=== PATIENT | male | born 1990 | race Two or more races ===

== ENCOUNTER 2018-03-21 01:16 | Emergency (ER) | payer OTHER ==
[2018-03-21] MEDS ORDERED: ONDANSETRON HCL INJ/PF 4 MG/2 ML SDV IV ONE (02:24)
[2018-03-21] MEDS ORDERED: PANTOPRAZOLE SODIUM 40 MG VIAL IV ONE (02:24)
[2018-03-21] MEDS ORDERED: NORMAL SALINE 1000 ML 1,000 ML IV ONE (02:24)
[2018-03-21 02:42] LABS: ABSOLUTE EOSINOPHILS # (AUTO) 0.2 10^3/uL (0.0-0.6); ABSOLUTE LYMPHOCYTES (AUTO) 2.5 10^3/uL (0.5-4.7); ABSOLUTE MONOCYTES (AUTO) 0.9 10^3/uL (0.1-1.4); ABSOLUTE NEUT (AUTO) 3.9 10^3/uL (1.7-8.2); BASOPHILS % (AUTO) 0.4 % (0-2); EOSINOPHILS % (AUTO) 2.9 % (0-6); HEMATOCRIT 41.7 % (37.9-51.0); HEMOGLOBIN 14.8 g/dL (13.5-17.0); LYMPHOCYTES % (AUTO) 33.1 % (13-45); MEAN CORPUSCULAR HEMOGLOBIN 31.8 pg (27.0-33.4); MEAN CORPUSCULAR HGB CONC 35.4 g/dL (32.0-36.0); MEAN CORPUSCULAR VOLUME 90 fl (80-97); MONOCYTES % (AUTO) 11.7 % (3-13); PLATELET COUNT 240 10^3/uL (150-450); RED BLOOD COUNT 4.64 10^6/uL (4.35-5.55); SEGMENTED NEUTROPHILS % (AUTO) 51.9 % (42-78); TOTAL CELLS COUNTED % (AUTO) 100 %; WHITE BLOOD COUNT 7.5 10^3/uL (4.0-10.5)
[2018-03-21] MEDS ORDERED: LIDOCAINE 2% VISCOUS SOLN 20 ML UDCUP PO ONE (03:08)
[2018-03-21] MEDS ORDERED: MAG HYDROX/AL HYDROX/SIMETH SUSP 30 ML UDCUP PO ONE (03:08)
[2018-03-21] MEDS ORDERED: METOCLOPRAMIDE HCL ORAL SOLN 10 MG/10 ML UDCUP PO ONE (03:08)
--- NOTE | 2018-03-21 03:11 | ER Document Report ---
ED General - General Chief Complaint: Epigastric Pain Stated Complaint: ABDOMINAL PAIN Time Seen by Provider: 03/21/18 02:23 TRAVEL OUTSIDE OF THE [place] IN LAST 30 DAYS: No - HPI Notes: Patient is a 27-year-old male that presents to the emergency department for chief complaint of abdominal pain. Patient reports 3 days of epigastric abdominal pain. It is sharp and worse when he lays down. It had pain has been constant since onset 3 days ago. He states it was a little better yesterday but got worse today. He states he did drink alcohol today reporting 2 beers consumed. Patient states all of this happened on after taking a "Phenalean" [id number] weight loss medication. He denies any vomiting but reports some nausea. He states he has had intermittent diarrhea for the last few days as well. He denies fevers, chills, chest pain and shortness of breath. Past Medical History: Negative Past Surgical History: [place] teeth removal Social History: Occasional alcohol, daily dip tobacco, occasional smoking Family History: Reviewed and noncontributory for presenting illness Allergies: Reviewed, see documented allergy list. REVIEW OF SYSTEMS: CONSTITUTIONAL : No fever No chills No diaphoresis No recent illness EENT: No vision changes No congestion No sore throat CARDIOVASCULAR: No chest pain No palpitations RESPIRATORY: No shortness of breath No cough No difficulty breathing GASTROINTESTINAL: abdominal pain nausea No vomiting diarrhea GENITOURINARY: No dysuria No hematuria No difficulty urinating MUSCULOSKELETAL: No back pain No leg pain No arm pain SKIN: No rashes No lesions LYMPHATIC: No swollen, enlarged glands. NEUROLOGICAL: No lightheadedness No headache No weakness No paresthesias PSYCHIATRIC: No anxiety No depression PHYSICAL EXAMINATION: Vital signs reviewed, nursing noted reviewed. GENERAL: Well-appearing, well-nourished and in no acute distress. HEAD: Atraumatic, normocephalic. EYES: Eyes appear normal, extraocular movements intact, sclera anicteric, conjunctiva are normal. ENT: nares patent, oropharynx clear without exudates. Moist mucous membranes. NECK: Normal range of motion, supple without lymphadenopathy LUNGS: Breath sounds clear to auscultation bilaterally and equal. No wheezes rales or rhonchi. HEART: Regular rate and rhythm without murmurs ABDOMEN: Soft, epigastric tenderness, normoactive bowel sounds. No rebound, guarding, or rigidity. No masses appreciated. EXTREMITIES: Nontender, good range of motion, no pitting or edema. NEUROLOGICAL: No focal neurological deficits. Moves all extremities spontaneously Motor and sensory grossly intact on exam. PSYCH: Normal mood, normal affect. SKIN: Warm, Dry, normal turgor, no rashes or lesions noted on exposed skin - Related Data Allergies/Adverse Reactions: No Known Allergies Allergy (Verified 03/21/18 03:22) Past Medical History - Social History Smoking Status: Current Some Day Smoker Chew tobacco use (# tins/day): Yes - <1 Frequency of alcohol use: Social Drug Abuse: None Family History: Reviewed & Not Pertinent Patient has suicidal ideation: No Patient has homicidal ideation: No Renal/ Medical History: Denies: Hx Peritoneal Dialysis Past Surgical History: Reports: Hx Oral Surgery Physical Exam - Vital signs Vitals: Temp Pulse Resp BP Pulse Ox 97.9 F 71 16 131/83 H 97 03/21/18 01:17 03/21/18 01:17 03/21/18 01:17 03/21/18 01:17 03/21/18 01:17 Course - Re-evaluation Re-evalutation: 03/21/18 03:10 Vitals reviewed. Nursing notes reviewed. Patient given IV hydration, Protonix, Zofran and GI cocktail for symptomatic management. 03/21/18 04:07 patient's lab work is unremarkable. He has a normal lipase. Patient did get symptomatic improvement while in the emergency room. He was counseled on stopping alcohol consumption as well as dietary changes. He will be started on omeprazole for symptomatic management. He is stable at discharge. Laboratory 03/21/18 03/21/18 02:27 02:27 WBC 7.5 RBC 4.64 Hgb 14.8 Hct 41.7 MCV 90 MCH 31.8 MCHC 35.4 RDW 13.0 Plt Count 240 Seg Neutrophils % 51.9 Lymphocytes % 33.1 Monocytes % 11.7 Eosinophils % 2.9 Basophils % 0.4 Absolute Neutrophils 3.9 Absolute Lymphocytes 2.5 Absolute Monocytes 0.9 Absolute Eosinophils 0.2 Absolute Basophils 0.0 Sodium 141.2 Potassium 3.8 Chloride 102 Carbon Dioxide 30 Anion Gap 9 BUN 16 Creatinine 0.85 Est GFR ( Amer) > 60 Est GFR (Non-Af Amer) > 60 Glucose 93 Calcium 9.0 Total Bilirubin 0.4 Direct Bilirubin 0.2 Neonat Total Bilirubin Not Reportable Neonat Direct Bilirubin Not Reportable Neonat Indirect Bili Not Reportable AST 105 H ALT 50 Alkaline Phosphatase 134 H Total Protein 6.7 Albumin 4.1 Lipase 151.2 - Vital Signs Vital signs: Temp Pulse Resp BP Pulse Ox 97.9 F 71 16 131/83 H 97 03/21/18 01:17 03/21/18 01:17 03/21/18 01:17 03/21/18 01:17 03/21/18 01:17 - Laboratory Result Diagrams: 03/21/18 02:27 03/21/18 02:27 Laboratory results interpreted by me: 03/21/18 02:27 AST 105 H Alkaline Phosphatase 134 H Discharge - Discharge Clinical Impression: Abdominal pain Qualifiers: Abdominal location: epigastric Qualified Code(s): R10.13 - Epigastric pain Condition: Stable Instructions: Abdominal Pain ([facility]) Additional Instructions: Please return to the emergency department if you have any worsening, or concern of your symptoms. Please return to the emergency department if you develop chest pain, difficulty breathing, severe abdominal pain, or ongoing vomiting. Please follow-up with your primary care physician in 2-3 days and any other recommended physicians. If prescribed, take all medications as directed. If you have any questions or concerns do not hesitate to return the emergency department for evaluation. Avoid alcohol, tobacco, spicy food, fried food and citrus food Prescriptions: Omeprazole 40 mg PO DAILY #30 capsule. Referrals: [facility] [Provider Group] - Follow up in 3-5 days
[2018-03-21 03:48] LABS: ALANINE AMINOTRANSFERASE 50 U/L (21-72); ALBUMIN 4.1 g/dL (3.5-5.0); ALKALINE PHOSPHATASE 134 U/L (38-126); ANION GAP 9 (5-19); ASPARTATE AMINO TRANSFERASE 105 U/L (17-59); BILIRUBIN,DIRECT 0.2 mg/dL (0.0-0.4); BILIRUBIN,TOTAL 0.4 mg/dL (0.2-1.3); BLOOD UREA NITROGEN 16 mg/dL (7-20); CARBON DIOXIDE 30 mmol/L (22-30); CHLORIDE 102 mmol/L (98-107); GLUCOSE 93 mg/dL (75-110); LIPASE 151.2 U/L (23-300); POTASSIUM 3.8 mmol/L (3.6-5.0); SODIUM 141.2 mmol/L (137-145); TOTAL PROTEIN 6.7 g/dL (6.3-8.2)
[2018-03-21 04:22] VITALS: BP 108/50
== END 2018-03-21 04:30 | disposition home or self-care (01) ==
LOC: ER 01:16
DX: R10.13 Epigastric pain (principal); R10.816 Epigastric abdominal tenderness; R11.0 Nausea; R19.7 Diarrhea, unspecified; F17.200 Nicotine dependence, unspecified, uncomplicated
CPT/HCPCS: 99284; 96374; 96375; 36415; 83690; 85025; 80053; J3490; S0164; J2405; J7030

== ENCOUNTER 2018-03-21 15:39 | Emergency (ER) | payer OTHER ==
[2018-03-21] MEDS ORDERED: NORMAL SALINE 1000 ML 1,000 ML IV ONE (17:11)
[2018-03-21] MEDS ORDERED: FAMOTIDINE INJ/PF 20 MG/2 ML SDV IV ONE (17:11)
[2018-03-21] MEDS ORDERED: LIDOCAINE 2% VISCOUS SOLN 20 ML UDCUP PO ONE (17:12)
[2018-03-21] MEDS ORDERED: MAG HYDROX/AL HYDROX/SIMETH SUSP 30 ML UDCUP PO ONE (17:12)
--- NOTE | 2018-03-21 17:13 | ER Document Report ---
ED GI/ - General Chief Complaint: Abdominal Pain Stated Complaint: ABDOMINAL PAIN Time Seen by Provider: 03/21/18 17:00 Mode of Arrival: Ambulatory Information source: Patient Notes: Patient presents complaining of epigastric pain for the past 3 days. Patient states he was seen here for this problem early this morning and was discharged. Patient was given a prescription for omeprazole but has not gotten it filled or taken it. Patient states that whenever he got home today he started to eat pizza and his abdominal pain returned. Patient denies any fever, nausea vomiting or diarrhea. Patient states last alcohol use was yesterday. TRAVEL OUTSIDE OF THE [place] IN LAST 30 DAYS: No - HPI Patient complains to provider of: Abdominal pain. No: Vomiting Onset: Other - 3 days Timing/Duration: Persistent Quality of pain: Burning Pain Level: 5 Location: Epigastric Sexual history: Active Associated symptoms: denies: Diarrhea, Dysuria, Fever, Vomiting Exacerbated by: Food Relieved by: Denies Similar symptoms previously: No Recently seen / treated by doctor: Yes - Related Data Allergies/Adverse Reactions: No Known Allergies Allergy (Verified 03/21/18 03:22) Past Medical History - General Information source: Patient - Social History Smoking Status: Current Every Day Smoker Smoking Education Provided: Yes Frequency of alcohol use: Occasional Drug Abuse: None Occupation: Active duty Lives with: Family Family History: Reviewed & Not Pertinent - Medical History Medical History: Negative Renal/ Medical History: Denies: Hx Peritoneal Dialysis Past Surgical History: Reports: Hx Oral Surgery Review of Systems - Review of Systems Constitutional: No symptoms reported. denies: Fever EENT: No symptoms reported Cardiovascular: No symptoms reported. denies: Chest pain Respiratory: No symptoms reported. denies: Cough, Short of breath Gastrointestinal: Abdominal pain. denies: Nausea, Vomiting Genitourinary: No symptoms reported. denies: Dysuria Male Genitourinary: No symptoms reported Musculoskeletal: No symptoms reported Skin: No symptoms reported Hematologic/Lymphatic: No symptoms reported Neurological/Psychological: No symptoms reported Physical Exam - Vital signs Vitals: Temp Pulse Resp BP Pulse Ox 98.5 F 51 L 18 125/71 96 03/21/18 15:44 03/21/18 15:44 03/21/18 15:44 03/21/18 15:44 03/21/18 15:44 - General General appearance: Alert, Anxious In distress: None - HEENT Head: Normocephalic, Atraumatic Eyes: Normal Conjunctiva: Normal Nasal: Normal Mouth/Lips: Normal Mucous membranes: Normal Neck: Normal, Supple. No: Lymphadenopathy - Respiratory Respiratory status: No respiratory distress Chest status: Nontender Breath sounds: Normal. No: Rales, Rhonchi, Stridor, Wheezing Chest palpation: Normal - Cardiovascular Rhythm: Regular Heart sounds: S1 appreciated, S2 appreciated Murmur: No - Abdominal Inspection: Normal Distension: No distension Bowel sounds: Normal Tenderness: Tender - epigastric Organomegaly: No organomegaly - Back Back: Normal, Nontender. No: CVA tenderness - Extremities General upper extremity: Normal inspection, Normal strength General lower extremity: Normal inspection, Normal strength - Neurological Neuro grossly intact: Yes Cognition: Normal Gabriela Coma Scale Eye Opening: Spontaneous Gabriela Coma Scale Verbal: Oriented [place] Coma Scale Motor: Obeys Commands [place] Coma Scale Total: 15 - Psychological Associated symptoms: Normal affect, Normal mood - Skin Skin Temperature: Warm Skin Moisture: Dry Skin Color: Normal Course - Re-evaluation Re-evalutation: 03/21/[address] Tan regarding patient presentation and diagnostic evaluation. Patient presents with epigastric tenderness. No concern for cholecystitis, cholangitis or pancreatitis at this time. Patient presents with likely gastritis symptoms. Patient encouraged to avoid alcohol and spicy foods. Patient encouraged to get the omeprazole filled and take as prescribed in addition to the Carafate. Patient encouraged to follow-up with his primary doctor for repeat examination. Patient reports feeling better after GI cocktail. Patient stable for discharge at this time. - Vital Signs Vital signs: Temp Pulse Resp BP Pulse Ox 98.4 F 53 L 16 133/65 H 100 03/21/18 19:16 03/21/18 19:16 03/21/18 19:16 03/21/18 19:16 03/21/18 19:16 - Laboratory Result Diagrams: 03/21/18 17:15 03/21/18 17:15 Laboratory results interpreted by me: 03/21/18 17:15 AST 87 H Alkaline Phosphatase 130 H Labs- Entire Visit 03/21/18 03/21/18 03/21/18 17:15 17:15 17:30 WBC 6.9 RBC 4.66 Hgb 14.3 Hct 42.0 MCV 90 MCH 30.7 MCHC 34.1 RDW 12.9 Plt Count 239 Seg Neutrophils % 58.4 Lymphocytes % 27.1 Monocytes % 11.6 Eosinophils % 2.6 Basophils % 0.3 Absolute Neutrophils 4.1 Absolute Lymphocytes 1.9 Absolute Monocytes 0.8 Absolute Eosinophils 0.2 Absolute Basophils 0.0 Sodium 138.9 Potassium 4.3 Chloride 101 Carbon Dioxide 29 Anion Gap 9 BUN 13 Creatinine 0.83 Est GFR ( Amer) > 60 Est GFR (Non-Af Amer) > 60 Glucose 99 Calcium 9.3 Total Bilirubin 0.3 Direct Bilirubin 0.2 Neonat Total Bilirubin Not Reportable Neonat Direct Bilirubin Not Reportable Neonat Indirect Bili Not Reportable AST 87 H ALT 54 Alkaline Phosphatase 130 H Total Protein 6.9 Albumin 4.3 Lipase 120.8 Urine Color YELLOW Urine Appearance CLOUDY Urine pH 7.0 Ur Specific [place] 1.014 Urine Protein NEGATIVE Urine Glucose (UA) NEGATIVE Urine Ketones NEGATIVE Urine Blood NEGATIVE Urine Nitrite NEGATIVE Urine Bilirubin NEGATIVE Urine Urobilinogen NEGATIVE Ur Leukocyte Esterase NEGATIVE Urine WBC (Auto) 1 Urine RBC (Auto) 0 Urine Bacteria (Auto) TRACE Amorphous Sediment Auto TRACE Urine Mucus (Auto) RARE Urine Ascorbic Acid NEGATIVE Urine Opiates Screen Urine Methadone Screen Ur Barbiturates Screen Ur Phencyclidine Scrn Ur Amphetamines Screen U Benzodiazepines Scrn Urine Cocaine Screen U Marijuana (THC) Screen Serum Alcohol < 10 03/21/18 17:30 WBC RBC Hgb Hct MCV MCH MCHC RDW Plt Count Seg Neutrophils % Lymphocytes % Monocytes % Eosinophils % Basophils % Absolute Neutrophils Absolute Lymphocytes Absolute Monocytes Absolute Eosinophils Absolute Basophils Sodium Potassium Chloride Carbon Dioxide Anion Gap BUN Creatinine Est GFR ( Amer) Est GFR (Non-Af Amer) Glucose Calcium Total Bilirubin Direct Bilirubin Neonat Total Bilirubin Neonat Direct Bilirubin Neonat Indirect Bili AST ALT Alkaline Phosphatase Total Protein Albumin Lipase Urine Color Urine Appearance Urine pH Ur Specific [place] Urine Protein Urine Glucose (UA) Urine Ketones Urine Blood Urine Nitrite Urine Bilirubin Urine Urobilinogen Ur Leukocyte Esterase Urine WBC (Auto) Urine RBC (Auto) Urine Bacteria (Auto) Amorphous Sediment Auto Urine Mucus (Auto) Urine Ascorbic Acid Urine Opiates Screen NEGATIVE Urine Methadone Screen NEGATIVE Ur Barbiturates Screen NEGATIVE Ur Phencyclidine Scrn NEGATIVE Ur Amphetamines Screen NEGATIVE U Benzodiazepines Scrn NEGATIVE Urine Cocaine Screen NEGATIVE U Marijuana (THC) Screen NEGATIVE Serum Alcohol Reviewed patient's labs from previous ER visit - Diagnostic Test Radiology reviewed: Reports reviewed Discharge - Discharge Clinical Impression: Abdominal pain Qualifiers: Abdominal location: epigastric Qualified Code(s): R10.13 - Epigastric pain Condition: Stable Disposition: HOME, SELF-CARE Instructions: Abdominal Pain ([facility]), Gastritis ([facility]) Additional Instructions: Return immediately for any new or worsening symptoms Followup with your primary care provider, call tomorrow to make a followup appointment Get the omeprazole prescription filled and take as prescribed Avoid any alcohol or spicy foods Eat a bland diet Prescriptions: Sucralfate [Carafate 1 gm Tablet] 1 gm PO ACHS #40 tablet Forms: Smoking Cessation Education Referrals: [facility] [Provider Group] - Follow up as needed
[2018-03-21 17:36] LABS: ABSOLUTE EOSINOPHILS # (AUTO) 0.2 10^3/uL (0.0-0.6); ABSOLUTE LYMPHOCYTES (AUTO) 1.9 10^3/uL (0.5-4.7); ABSOLUTE MONOCYTES (AUTO) 0.8 10^3/uL (0.1-1.4); ABSOLUTE NEUT (AUTO) 4.1 10^3/uL (1.7-8.2); BASOPHILS % (AUTO) 0.3 % (0-2); EOSINOPHILS % (AUTO) 2.6 % (0-6); HEMOGLOBIN 14.3 g/dL (13.5-17.0); LYMPHOCYTES % (AUTO) 27.1 % (13-45); MEAN CORPUSCULAR HEMOGLOBIN 30.7 pg (27.0-33.4); MEAN CORPUSCULAR HGB CONC 34.1 g/dL (32.0-36.0); MEAN CORPUSCULAR VOLUME 90 fl (80-97); MONOCYTES % (AUTO) 11.6 % (3-13); PLATELET COUNT 239 10^3/uL (150-450); RED BLOOD COUNT 4.66 10^6/uL (4.35-5.55); RED CELL DISTRIBUTION WIDTH 12.9 % (11.5-14.0); SEGMENTED NEUTROPHILS % (AUTO) 58.4 % (42-78); TOTAL CELLS COUNTED % (AUTO) 100 %; WHITE BLOOD COUNT 6.9 10^3/uL (4.0-10.5)
[2018-03-21 17:52] LABS: ALANINE AMINOTRANSFERASE 54 U/L (21-72); ALBUMIN 4.3 g/dL (3.5-5.0); ALCOHOL < 10 mg/dL (NONE DETECTED); ALKALINE PHOSPHATASE 130 U/L (38-126); ANION GAP 9 (5-19); ASPARTATE AMINO TRANSFERASE 87 U/L (17-59); BILIRUBIN,DIRECT 0.2 mg/dL (0.0-0.4); BILIRUBIN,TOTAL 0.3 mg/dL (0.2-1.3); BLOOD UREA NITROGEN 13 mg/dL (7-20); CALCIUM 9.3 mg/dL (8.4-10.2); CARBON DIOXIDE 29 mmol/L (22-30); CHLORIDE 101 mmol/L (98-107); GLUCOSE 99 mg/dL (75-110); LIPASE 120.8 U/L (23-300); POTASSIUM 4.3 mmol/L (3.6-5.0); SODIUM 138.9 mmol/L (137-145); TOTAL PROTEIN 6.9 g/dL (6.3-8.2)
[2018-03-21 18:10] LABS: AMORPHOUS SEDIMENT,URINE TRACE /HPF; APPEARANCE,URINE CLOUDY; BILIRUBIN,URINE NEGATIVE (NEGATIVE); COLOR,URINE YELLOW; GLUCOSE, URINE NEGATIVE (NEGATIVE); KETONES,URINE NEGATIVE (NEGATIVE); LEUKOCYTE ESTERASE,URINE NEGATIVE (NEGATIVE); NITRITE,URINE NEGATIVE (NEGATIVE); PROTEIN,URINE NEGATIVE (NEGATIVE); URINE SPECIFIC GRAVITY 1.014; UROBILINOGEN,URINE NEGATIVE mg/dL (<2.0)
[2018-03-21 18:22] LABS: URINE AMPHETAMINES SCREEN NEGATIVE; URINE BARBITURATES SCREEN NEGATIVE; URINE BENZODIAZEPINES SCREEN NEGATIVE; URINE COCAINE SCREEN NEGATIVE; URINE MARIJUANA (THC) SCREEN NEGATIVE; URINE METHADONE SCREEN NEGATIVE; URINE PHENCYCLIDINE SCREEN NEGATIVE
--- NOTE | 2018-03-21 18:39 | RADIOLOGY REPORT (SQ) ---
EXAM DESCRIPTION: U/S ABDOMEN LIMITED W/O DOP COMPLETED DATE/TIME: 03/21/2018 6:26 pm REASON FOR STUDY: epig pain COMPARISON: None. TECHNIQUE: Dynamic and static grayscale images acquired of the abdomen and recorded on PACS. Additio nal selected color Doppler and spectral images recorded. LIMITATIONS: None. FINDINGS: PANCREAS: No masses. Visualized pancreatic duct normal caliber. LIVER: No masses. Echotexture normal. LIVER VASCULATURE: Not assessed in a dedicated fashion. Grossly patent portal veins. GALLBLADDER: No stones. Normal wall thickness. No pericholecystic fluid. ULTRASOUND-DETECTED MAURICE'S SIGN: Negative. INTRAHEPATIC DUCTS AND COMMON DUCT: CBD and intrahepatic ducts normal caliber. No filling defects. INFERIOR VENA CAVA: Not evaluated. AORTA: Not evaluated. RIGHT KIDNEY: Normal size. Normal echogenicity. No solid or suspicious masses. No hydronephrosis. No calcifications. PERITONEAL AND RIGHT PLEURAL SPACE: No ascites or effusions. OTHER: No other significant findings. IMPRESSION: NORMAL RIGHT UPPER QUADRANT ULTRASOUND. TECHNICAL DOCUMENTATION: JOB ID: [id number] [employer]- All Rights Reserved Reading location - IP/workstation name: [email or web address]
[2018-03-21 19:16] VITALS: BP 133/65
--- NOTE | 2018-03-21 22:12 | EKG REPORT ---
SEVERITY:- ABNORMAL ECG - SINUS BRADYCARDIA LAD, CONSIDER LEFT ANTERIOR FASCICULAR BLOCK : Confirmed by: Rena Cui MD 21-Mar-2018 22:12:18
== END 2018-03-21 19:16 | disposition home or self-care (01) ==
LOC: ER 15:39
DX: R10.13 Epigastric pain (principal); F17.200 Nicotine dependence, unspecified, uncomplicated
CPT/HCPCS: 93005; 99284; 96361; 96374; 36415; 80307 ×2; 83690; 85025; 80053; 81001; 76705; 93010; J3490; J7030; S0028